=== PATIENT | female | born 1970 | race Caucasian/White ===

== ENCOUNTER → 2017-09-30 10:30 | Outpatient (CLI) | payer OTHER, SELFPAY ==
[2017-09-30 12:19] LABS: Hematocrit 45.1 % (36-46); Hemoglobin 15.7 g/dL (12.0-16.0); Mean Corpuscular HGB Conc 34.8 % (30-36); Mean Corpuscular Hemoglobin 31.9 PG (26-34); Mean Corpuscular Volume 91.6 fL (80-100); Platelet Count 294 X10^3/uL (150-400); Red Blood Cell Count 4.93 X10^6/uL (4.0-5.2); Red Cell Distribution Width 13.5 % (11.6-14.8); White Blood Cell Count 9.3 X10^3/uL (4.5-11.0)
[2017-09-30 17:13] LABS: BUN Creatinine Ratio 15.7 (6-22); Blood Urea Nitrogen 11 mg/dL (7-17); Calcium 10.1 mg/dL (8.4-10.2); Carbon Dioxide 27 mmol/L (22-32); Chloride 99 mmol/L (98-107); Cholesterol 278 mg/dL (140-199); Estimated Glomerular Filt Rate > 60.0 mL/min (>60); Glucose 88 mg/dL (70-100); HDL Cholesterol 72 mg/dL (40-60); HEMOLYSIS < 15 (0-50); LDL Cholesterol Calculated 175 mg/dL (<100); Potassium 5.2 mmol/L (3.4-5.1); Sodium 137 mmol/L (137-145); Triglycerides 154 mg/dL (35-150)
[2017-09-30 17:44] LABS: Testosterone 15.6 ng/dL (5.71-77.0)
[2017-10-02 09:46] LABS: Thyroid Stimulating Hormone 1.48 uIU/mL (0.47-4.68)
[2017-10-05 15:40] LABS: Progesterone 19.9
[2017-10-06 09:19] LABS: Dehydroepiandrosterone Sulfate 54
[2017-10-06 09:21] LABS: Estradiol 153
== END ==
PROVIDERS: PCP Registered Nurse; Visit Provider Registered Nurse
DX: I10 Essential (primary) hypertension (principal); N92.6 Irregular menstruation, unspecified
CPT/HCPCS: 36415; 80048; 80061; 82627; 82670; 84144; 84403; 84443; 85027

== ENCOUNTER → 2017-11-26 16:24 | Outpatient (CLI) | payer OTHER, SELFPAY ==
[2017-11-26 17:29] LABS: Free T3, Triiodothyronine Free 3.28 pg/mL (2.77-5.27); Free T4, Direct Thyroxine 1.13 ng/dL (0.78-2.19)
[2017-11-26 17:43] LABS: Thyroid Stimulating Hormone 0.93 uIU/mL (0.47-4.68)
== END ==
PROVIDERS: Family Provider Registered Nurse; PCP Registered Nurse; Visit Provider Registered Nurse
DX: N92.6 Irregular menstruation, unspecified (principal)
CPT/HCPCS: 36415; 84439; 84443; 84481

== ENCOUNTER → 2018-12-07 16:39 | Outpatient (CLI) | payer OTHER, SELFPAY ==
--- NOTE | 2018-12-07 | DI.MG.S_ITS ---
BILATERAL DIGITAL SCREENING MAMMOGRAM 3D/2D WITH CAD: 12/07/2018 CLINICAL: Routine screening. Comparison is made to exams dated: 04/10/2016 mammogram, 01/01/2011 mammogram, and 02/05/2009 mammogram - [facility]. There are scattered fibroglandular elements in both breasts. Current study was also evaluated with a Computer Aided Detection (CAD) system. No significant masses, calcifications, or other findings are seen in either breast. There has been no significant interval change. IMPRESSION: NEGATIVE There is no mammographic evidence of malignancy. A 1 year screening mammogram is recommended. This exam was interpreted at Station ID: [id number]. NOTE: For mammograms, a report in lay terms will be sent to the patient. Approximately 15% of breast malignancies will not be visualized mammographically. In the management of a palpable breast mass, a negative mammogram must not discourage biopsy of a clinically suspicious lesion. Electronically Signed By: Estrella damico/senia:12/07/2018 17:32:02 letter sent: Normal Exam ACR BI-RADS Category 1: Negative 3341F
== END ==
PROVIDERS: PCP Registered Nurse; Visit Provider Registered Nurse
DX: Z12.31 Encounter for screening mammogram for malignant neoplasm of breast (principal)
CPT/HCPCS: 77063; 77067

== ENCOUNTER → 2019-09-02 15:35 | Outpatient (CLI) | payer OTHER, SELFPAY ==
--- NOTE | 2019-09-02 15:38 | DI.RAD.S_ITS ---
PROCEDURE: XR ANKLE LT MIN 3V INDICATIONS: Ankle pain TECHNIQUE: 3 views of the ankle were acquired. COMPARISON: None. FINDINGS: Bones: No fractures or dislocations. Ankle mortise is normally aligned. No suspicious bony lesions. Soft tissues: No tibiotalar joint effusion. Achilles tendon appears normal. IMPRESSION: No acute fracture. No osseous lesion. If symptoms and/or clinical suspicion for pathology persist, further assessment with repeat, or advanced imaging (e.g., CT, MRI, or bone scan) may be helpful for further assessment. Dictated by: Suly Linder M.D. on 09/02/2019 at 16:07 Approved by: Suly Linder M.D. on 09/02/2019 at 16:07
--- NOTE | 2019-09-02 15:38 | DI.RAD.S_ITS ---
PROCEDURE: XR TIBIA FUBULA RT 2V INDICATIONS: Ankle pain TECHNIQUE: 2 views of the tibia and fibula were acquired. COMPARISON: None. FINDINGS: Bones: No fractures or dislocations. No suspicious bony lesions. Soft tissues: No suspicious soft tissue calcifications or masses. IMPRESSION: No acute fracture. No osseous lesion. If symptoms and/or clinical suspicion for pathology persist, further assessment with repeat, or advanced imaging (e.g., CT, MRI, or bone scan) may be helpful for further assessment. Dictated by: Suly Linder M.D. on 09/02/2019 at 16:07 Approved by: Suly Linder M.D. on 09/02/2019 at 16:07
== END ==
PROVIDERS: PCP Registered Nurse; Referring Provider Nurse Practitioner; Visit Provider Nurse Practitioner
DX: M25.572 Pain in left ankle and joints of left foot (principal); M25.571 Pain in right ankle and joints of right foot
CPT/HCPCS: 73590; 73610

== ENCOUNTER → 2019-10-03 10:47 | Outpatient (CLI) | payer OTHER, SELFPAY ==
[2019-10-03 11:49] LABS: Cholesterol 235 mg/dL (140-199); Glucose 92 mg/dL (70-100); HDL Cholesterol 71 mg/dL (40-60); LDL Cholesterol Calculated 145 mg/dL (<100); Triglycerides 97 mg/dL (35-150)
[2019-10-03 12:22] LABS: Thyroid Stimulating Hormone 1.12 uIU/mL (0.47-4.68)
== END ==
PROVIDERS: PCP Registered Nurse; Referring Provider Registered Nurse; Visit Provider Registered Nurse
DX: E78.00 Pure hypercholesterolemia, unspecified (principal); I10 Essential (primary) hypertension
CPT/HCPCS: 36415; 80061; 82947; 84443

== ENCOUNTER → 2020-11-16 16:06 | Outpatient (CLI) | payer OTHER, SELFPAY ==
--- NOTE | 2020-11-16 16:10 | DI.MG.S_ITS ---
BILATERAL DIGITAL SCREENING MAMMOGRAM 3D/2D WITH CAD: 11/16/2020 CLINICAL: Routine screening. Comparison is made to exams dated: 04/10/2016 mammogram, 04/11/2011, and 12/07/2018 mammogram - [facility]. There are scattered fibroglandular elements in both breasts. Current study was also evaluated with a Computer Aided Detection (CAD) system. No significant masses, calcifications, or other findings are seen in either breast. There has been no significant interval change. IMPRESSION: NEGATIVE There is no mammographic evidence of malignancy. A 1 year screening mammogram is recommended. This exam was interpreted at Station ID: [id number]. NOTE: For mammograms, a report in lay terms will be sent to the patient. Approximately 15% of breast malignancies will not be visualized mammographically. In the management of a palpable breast mass, a negative mammogram must not discourage biopsy of a clinically suspicious lesion. Electronically Signed By: Jd Busby M.D., jr/senia:11/16/2020 16:40:41 letter sent: Normal Exam ACR BI-RADS Category 1: Negative 3341F
== END ==
PROVIDERS: PCP Registered Nurse; Referring Provider Registered Nurse; Visit Provider Registered Nurse
DX: Z12.31 Encounter for screening mammogram for malignant neoplasm of breast (principal)
CPT/HCPCS: 77063; 77067

== ENCOUNTER 2021-11-03 17:41 | Emergency (ER) | payer OTHER, SELFPAY ==
[2021-11-03 17:47] VITALS: BP 189/102; PULSE 79; RESP 22; TEMP 36.9; O2SAT 99
--- NOTE | 2021-11-03 17:51 | DI.RAD.S_ITS ---
PROCEDURE: XR WRIST LT MIN 3V INDICATIONS: fall TECHNIQUE: 4 views of the wrist were acquired. COMPARISON: None. FINDINGS: Bones: There is a comminuted distal radial fracture with ventral angulation. Fracture lucencies extend into the joint space. Scaphoid view: No fracture. Soft tissues: No suspicious soft tissue calcifications. IMPRESSION: Comminuted intra-articular distal radial fracture. Dictated by: Winter Fowler M.D. on 11/03/2021 at 18:22 Approved by: Winter Fowler M.D. on 11/03/2021 at 18:23
[2021-11-03] MEDS: HYDROCODONE/ACET 5/325 PREPACK 1 BOTTLE MISC (20:38)
[2021-11-03] MEDS: ONDANSETRON 4 MG ODT PREPACK 1 BOTTLE MISC (20:38)
[2021-11-03] MEDS: BUPIVACAINE 0.5% (PF) VIAL 5 ML SUBCUT (20:38)
--- NOTE | 2021-11-03 21:08 | ED_ITS ---
HPI - Extremity Injury (Upper) General Chief Complaint: Extremity Injury, Upper Stated Complaint: Fall/Left Wrist Injury Time Seen by Provider: 11/03/21 20:15 Source: patient Mode of arrival: Ambulatory History of Present Illness HPI narrative: 51-year-old female nonsmoker with history of hypertension and hypothyroid presents with a chief complaint of left wrist pain after a fall. She denies any head, neck or back pain. She denies any prodromal symptoms such as dizziness, weakness or lightheadedness. She had no chest pain or shortness of breath. She states that she has severe pain on palpation and with attempts at range of motio n. She denies any numbness, tingling or weakness. She has no shoulder or elbow pain. She is otherwise well and free of complaint Related Data Home Medications Medication Instructions Recorded Confirmed hydrochlorothiazide 25 mg tablet 25 mg PO QDAY ##0 04/21/17 09/02/19 losartan 50 mg tablet (Cozaar) 50 mg PO QDAY ##0 04/21/17 09/02/19 levothyroxine 25 mcg capsule 25 mcg PO DAILY 10/23/17 09/02/19 Previous Rx's Medication Instructions Recorded hydrocodone 5 mg-acetaminophen 325 1 tab PO Q4-6H PRN pain #20 tabs 11/03/21 mg tablet Allergies Allergy/AdvReac Type Severity Reaction Status Date / Time codeine [CODEINE] Allergy Unknown Verified 09/02/19 16:00 Sulfa (Sulfonamide Allergy Unknown Verified 09/02/19 16:00 Antibiotics) [SULFA (SULFONAMIDE ANTIBIOTICS)] Review of Systems Review of Systems Narrative: GENERAL: Denies chills, fatigue, malaise, fever, sweats. HEENT: Denies sinus pain, ear pain, sore throat, difficulty swallowing, dizziness. RESPIRATORY: Denies dyspnea, cough, wheezing, hemoptysis, sputum. CARDIOVASCULAR: Denies chest pain, palpitations, orthopnea, edema, GASTROINTESTINAL: Denies nausea, vomiting, abdominal pain, diarrhea, constipation, melena. : Denies dysuria, frequency, incontinence, hematuria, urinary retention. MUSCULOSKELETAL: See HPI SKIN: Denies rash, skin lesions, or other NEUROLOGIC: Denies weakness, headache, numbness, change in speech, confusion, seizures, incoordination. PSYCHIATRIC: No concerning psychosocial issues. 12 point review of systems is negative except for those stated above Patient History Social History Smoking Status: Never smoker alcohol intake: current Smoking Status: Never smoker Exam Narrative Exam Narrative: GENERAL: [51] year old patient appears stated age. Well-developed patient, in mild distress. HEAD: Atraumatic. Normocephalic. EYES: Pupils equal round and reactive. Extraocular motions intact. No scleral icterus. No injection or drainage. ENT: Nose without bleeding, purulent drainage. Throat without erythema, tonsillar hypertrophy or exudate. Airway patent. NECK: Trachea midline. Non tender CARDIOVASCULAR: Regular rate and rhythm without murmurs, gallops, or rubs. RESPIRATORY: Clear to auscultation. Breath sounds equal bilaterally. No wheezes, rales, or rhonchi. GASTROINTESTINAL: Abdomen soft, non-tender, nondistended. EXTREMITIES: Obvious deformity to left wrist consistent with distal radius fracture. Closed, isolated and neurovascularly intact. No pain on palpation of elbow or shoulder BACK: Nontender without deformity or crepitance. No flank tenderness. NEURO: AOx3. SKIN: No rash or erythema of visible areas Initial Vital Signs Initial Vital Signs: Vital Signs Temperature 98.5 F 11/03/21 17:47 Pulse Rate 79 11/03/21 17:47 Respiratory Rate 22 11/03/21 17:47 Blood Pressure 189/102 H 11/03/21 17:47 Pulse Oximetry 99 11/03/21 17:47 Oxygen Delivery Method 11/03/21 17:47 Procedures Orthopedic Fracture Reduction Fracture #1: Time Out Performed: Yes Side: left Fracture Reduction Location: radius Analgesia: hematoma block Technique: direct manipulation Post Reduction X-rays Demonstrate: acceptable reduction Post-reduction neuro exam: intact Post-reduction vascular exam: intact Splint Applied: Yes Patient Tolerated Procedure: Well Orthopedic Splinting/Casting Injury #1: Side: left Upper Extremity Injury Location: wrist Upper Extremity Immobilizer: sling/shoulder immobilizer and sugar tong splint Post splinting neuro exam: intact Post splinting vascular exam: intact Placed by: Provider Course Orders Ordered: ED Orders 11/03/21 22:19 XR wrist LT 2V Stat Discontinued Medications Hydrocodone Bitart/Acetaminophen (Hydrocodone/Acet 5/325 Prepack) 1 bottle MISC SEEINSTR ONE Stop: 11/03/21 20:20 Last Admin: 11/03/21 20:38 Dose: 1 bottle Documented By: KATT Bupivacaine HCl (Bupivacaine 0.5% (Pf) Vial) 5 ml SUBCUT NOW ONE Stop: 11/03/21 20:20 Last Admin: 11/03/21 20:38 Dose: 5 ml Documented By: KATT Ondansetron HCl (Ondansetron 4 Mg Odt Prepack) 1 bottle MISC SEEINSTR ONE Stop: 11/03/21 20:20 Last Admin: 11/03/21 20:38 Dose: 1 bottle Documented By: KATT Vital Signs Vital signs: Vital Signs - 8 hr 11/03/21 22:26 Pulse Rate 69 Respiratory Rate 16 Blood Pressure 193/95 H Pulse Oximetry 99 Oxygen Delivery Method Room Air MDM - Extremity Injury (Upper) Imaging Data Extremity x-ray #1: Radiologist's Impression: [address] [address] XRay Report Signed Patient: Dominga Forman MR#: [id number] : 1970 Acct:[id number] Age/Sex: 51 / F Date of Service: 11/03/21 Loc: ED Accession Number: [id number] ?? Procedure: XR wrist LT min 3V Ordering Provider: Hanna Jordan D.O. PROCEDURE:? XR WRIST LT MIN 3V ? INDICATIONS: fall ? TECHNIQUE:? 4 views of the wrist were acquired.? ? COMPARISON:? None. ? FINDINGS:? ? Bones:? There is a comminuted distal radial fracture with ventral angulation.? Fracture lucencies extend into the joint space. ? Scaphoid view:? No fracture. ? Soft tissues:? No suspicious soft tissue calcifications.? ? IMPRESSION:? Comminuted intra-articular distal radial fracture. ? ? Dictated by: Winter Fowler M.D. on 11/03/2021 at 18:22 ? ? Approved by: Winter Fowler M.D. on 11/03/2021 at 18:23 ? Extremity x-ray #2: Radiologist's Impression: [address] [address] XRay Report Signed Patient: Dominga Forman MR#: [id number] : 1970 Acct:[id number] Age/Sex: 51 / F Date of Service: 11/03/21 Loc: ED Accession Number: [id number] ?? Procedure: XR wrist LT 2V Ordering Provider: Romulo Giraldo D.O. PROCEDURE:? XR WRIST LT 2V ? INDICATIONS: post reduction ? TECHNIQUE:? 2 views of the wrist were acquired.? ? COMPARISON:? [facility], CR, XR WRIST LT MIN 3V, 11/03/2021, 18:00. ? FINDINGS:? ? Bones:? There is slightly improved alignment status post closed reduction of the previously demonstrated intra-articular distal radius fracture.? There is persistent mild volar and radial sided displacement with mild volar angulation.? An external cast limits evaluation fine bony detail. ? Soft tissues:? External cast limits evaluation of the soft tissues. ? IMPRESSION:? ? 1. Slightly improved alignment status post closed reduction of intra-articular distal radius fracture.? ? ? Dictated by: Mark Dsouza M.D. on 11/03/2021 at 23:08 ? ? Approved by: Mark Dsouza M.D. on 11/03/2021 at 23:10 ? MDM Narrative Medical decision making narrative: 51-year-old female presents with a fall resulting in an isolated and neurovascularly intact distal radius fracture. Despite our best attempts at fracture reduction there is still a very high likelihood of the patient needing surgery, which she understands. Pain is well controlled, return precautions discussed and questions answered to their apparent satisfaction Discharge Plan Departure Patient Disposition: Home Clinical Impression: Distal radial fracture Instructions: DI for Distal Radius Fracture Activity Restrictions/Additional Instructions: *You have been diagnosed with [left distal radius fracture] *What to do: *Please continue to take your regular medications as directed. [ x] New medication prescriptions sent to your pharmacy: [[facility] ] [ ] New medication written as a paper prescription [x] Tylenol and occasional Motrin for pain *Please follow up with [Liu] of [facility] in 2-3 days, call for an appointment. Let them know you were seen in the Emergency Department and that we ask that you be seen in follow up. We will electronically transmit a record of today's note if your PCP is in our system *Return to Emergency Department if you should have any new, worsening or concerning symptoms, such as [worsening pain, significant swelling, cold extremities, numbness, tingling, weakness or other bothersome symptoms Splint Care: Keep splint clean and dry. Elevated affected body part to decrease swelling. OK to use ice pack on the affected body part. Use for 15-20 minutes each time, for 5-6x per day. If you develop worsening pain, numbness, tingling, discoloration of the affected body part, loosen the splint by loosening the JOSÉ MIGUEL wrap, and either see your doctor for an urgent re-assessment, or return to the Emergency Department. Return to the Emergency Department for any new or worsening symptoms. You have been prescribed a short course of narcotic medications. These are potentially dangerous and addictive medications that should be used carefully. While on these medications you cannot drive or operate heavy machinery. Additionally, you cannot sign legal documents or perform any duties such as this. Many people get constipated on narcotic medications so it would be advisable to discuss stool softeners with the pharmacist when you orange picker your prescription. Please understand that we cannot provide further refills of narcotics or controlled substances through the ED and your pain management will need to be through your Primary Care Provider Prescriptions: New hydrocodone-acetaminophen 5-325 mg tablet 1 tab PO Q4-6H PRN (Reason: pain) Qty: 20 0RF No Action levothyroxine 25 mcg capsule 25 mcg PO DAILY losartan [Cozaar] 50 MG tablet 50 mg PO QDAY Qty: 0 hydrochlorothiazide 25 MG tablet 25 mg PO QDAY Qty: 0 Referrals: Joann Hatfield MD [Physician] - Rafi Kiser ARNP [Primary Care Provider] - Stand Alone Forms: Work Release Note Visit Report Forms: Patient Portal/API
--- NOTE | 2021-11-03 22:19 | DI.RAD.S_ITS ---
PROCEDURE: XR WRIST LT 2V INDICATIONS: post reduction TECHNIQUE: 2 views of the wrist were acquired. COMPARISON: [facility], CR, XR WRIST LT MIN 3V, 11/03/2021, 18:00. FINDINGS: Bones: There is slightly improved alignment status post closed reduction of the previously demonstrated intra-articular distal radius fracture. There is persistent mild volar and radial sided displacement with mild volar angulation. An external cast limits evaluation fine bony detail. Soft tissues: External cast limits evaluation of the soft tissues. IMPRESSION: 1. Slightly improved alignment status post closed reduction of intra-articular distal radius fracture. Dictated by: Mark Dsouza M.D. on 11/03/2021 at 23:08 Approved by: Mark Dsouza M.D. on 11/03/2021 at 23:10
[2021-11-03 22:26] VITALS: BP 193/95; PULSE 69; RESP 16; O2SAT 99
== END 2021-11-03 22:47 | disposition home or self-care (01) ==
PROVIDERS: Emergency Provider Emergency Medicine; PCP Registered Nurse
DX: S52.502A Unspecified fracture of the lower end of left radius, initial encounter for closed fracture (principal); W19.XXXA Unspecified fall, initial encounter
CPT/HCPCS: 25605; 29125; 73100; 73110; 99283; 99284

== ENCOUNTER → 2023-07-09 09:26 | Outpatient (CLI) | payer OTHER, SELFPAY ==
--- NOTE | 2023-07-09 09:27 | DI.RAD.S_ITS ---
PROCEDURE: XR CHEST 2V INDICATIONS: Cough TECHNIQUE: 2 views of the chest were acquired. COMPARISON: [facility], CHEST 2 VIEW, 07/25/2010, 13:27. [facility], CHEST 2 VIEW, 02/27/2017, 12:05. FINDINGS: Surgical changes and devices: None. Lungs and pleura: Lungs are clear. No pleural effusions or pneumothorax. Mediastinum: Mediastinal contours are normal. Heart size is normal. Bones and chest wall: No suspicious bony abnormalities. Soft tissues appear unremarkable. IMPRESSION: No acute cardiopulmonary abnormality. Dictated by: Mohsen Villarreal M.D. on 07/09/2023 at 10:44 Approved by: Mohsen Villarreal M.D. on 07/09/2023 at 10:45
== END ==
PROVIDERS: PCP Registered Nurse; Referring Provider Nurse Practitioner Family; Visit Provider Nurse Practitioner Family
DX: R05.9 Cough, unspecified (principal)
CPT/HCPCS: 71046; 87070

== ENCOUNTER → 2023-07-09 09:29 | Outpatient (CLI) | payer OTHER, SELFPAY | PROVIDERS: PCP Registered Nurse; Visit Provider Nurse Practitioner Family | DX: J02.9 Acute pharyngitis, unspecified (principal) | CPT/HCPCS: 87070 ==

== ENCOUNTER → 2024-07-08 12:46 | Outpatient (CLI) | payer OTHER, SELFPAY ==
--- NOTE | 2024-07-08 12:50 | DI.MG.S_ITS ---
MM screening mammo BI: 07/08/2024. BI-RADS: 1 CLINICAL: 54-year old female for bilateral screening mammogram. Tyrer-Cuzick lifetime risk of 9.9%. No personal or first-degree family history of breast cancer. The patient had a prior left breast biopsy. PRIOR EXAMS 11/16/2020, 12/07/2018, 04/10/2016. MAMMOGRAPHY TECHNIQUE: 2D and 3D (tomosynthesis) digital mammographic views obtained, with additional images as needed for full coverage. Current study was also evaluated with a Computer Aided Detection (CAD) system. DENSITY B. There are scattered areas of fibroglandular density. MAMMOGRAPHY FINDINGS Bilateral: No suspicious mass, asymmetry, microcalcification, or other abnormality seen. IMPRESSION: * No evidence of malignancy. RECOMMENDATIONS Bilateral * Annual screening mammography. OVERALL ASSESSMENT CATEGORY BI-RADS-1: Negative. The [employer] recommends annual screening mammography beginning at age 40 for women with average risk of breast cancer. ELECTRONICALLY SIGNED: Mohsen Villarreal M.D. on 07/08/2024 at 04:45:32 PM PT Interpreting Station ID: [id number]
== END ==
PROVIDERS: PCP Registered Nurse; Referring Provider Registered Nurse; Visit Provider Registered Nurse
DX: Z12.31 Encounter for screening mammogram for malignant neoplasm of breast (principal)
CPT/HCPCS: 77063; 77067